=== PATIENT | male | born 1940 | race Caucasian/White ===

== ENCOUNTER 2017-05-31 00:05 | Inpatient (IN) | payer MEDICARE ==
[2017-05-31] MEDS ORDERED: Ondansetron HCl/PF 4 MG/2 ML Vial ONE ×2 (00:23→11:18)
[2017-05-31 02:02] LABS: #Eosinphils 0.1 thou/uL (0.0-0.7); #Lymphocytes 0.8 thou/uL (1.20-3.40); #Monocytes 0.7 thou/uL (0.11-0.59); #Neutrophils 8.5 thou/uL (1.40-6.50); %Eosinophils 1.4 % (0.0-10.0); %Lymphocytes 7.6 % (21.0-51.0); %Monocytes 6.7 % (0.0-10.0); Hematocrit 41.3 % (42.0-52.0); Mean Platelet Volume 7.1 fL (7.4-10.4); Red Blood Cell (RBC) Count 3.96 mill/uL (4.70-6.10); White Blood Cell (WBC) Count 10.1 thou/uL (4.8-10.8)
[2017-05-31 02:08] LABS: PTT 30.7 SEC (22.9-36.1)
[2017-05-31 02:21] LABS: ALT (SGPT) 11 U/L (8-55); AST (SGOT) 17 U/L (5-34); Alkaline Phosphatase 104 U/L (40-150); Anion Gap 11 mmol/L (10-20); BUN (Urea Nitrogen) 26 mg/dL (8.4-25.7); Bilirubin, Total 0.4 mg/dL (0.2-1.2); Calc. Creatinine Clearance 0 mL/min (70-130); Calcium 8.8 mg/dL (7.8-10.44); Carbon Dioxide 27 mmol/L (23-31); Chloride 107 mmol/L (98-107); Estimated GFR-MDRD Greater than 90; Globulin 2.4 g/dL (2.4-3.5); Protein, Total 5.7 g/dL (5.8-8.1)
[2017-05-31] MEDS ORDERED: Dextrose 50% Abboject 50 ML SYRINGE SLOW IVP PRN (03:10)
[2017-05-31] MEDS ORDERED: Morphine Sulfate 2 MG/ML SYRINGE IVP PRN (03:10)
[2017-05-31] MEDS ORDERED: Ondansetron ODT 4 MG TAB PO PRN (03:10)
[2017-05-31] MEDS ORDERED: Ondansetron HCl/PF 4 MG/2 ML Vial IVP PRN ×2 (03:10→11:53)
[2017-05-31] MEDS ORDERED: Dextrose 5% in Water 1,000 ML IV PRN (03:10)
[2017-05-31 03:20] VITALS: BMI 11.5
[2017-05-31] MEDS: Sodium Chloride 0.9% 1,000 ML IV SCH ×3 (03:56→20:55)
--- NOTE | 2017-05-31 05:36 | HP ---
DATE OF ADMISSION: 05/31/2017 REQUESTING PHYSICIAN: Dr. Guzman. CONSULTATION: Dr. De La O of Orthopedics. HISTORY OF PRESENT ILLNESS: The patient is a 76-year-old, man, who resides in a nursing h ome, who was found by staff after falling and landing on his left hip. The patient was unable to am bulate and had significant amount of pain, was brought by ambulance to the emergency department, und erwent evaluation and examination, and was noted to have a left femoral neck fracture, at which time , we were asked to evaluate the patient for admission and obtain orthopedic consultation. ALLERGIES: None. CURRENT MEDICATIONS: Vitamin D, vitamin B12, Dexilant, Colace, folic acid, multivitamin, Namenda, M iraLax, and Ultram. PAST MEDICAL HISTORY: Gastrointestinal disease, peptic ulcer disease, peripheral neuropathy, and de pression. PAST SURGICAL HISTORY: Right hip surgery and gastrectomy for bleeding ulcer. SOCIAL HISTORY: The patient is resident at a residential. Denies alcohol use, smokes cigars, and previously smoked 2 packs of cigarettes per day. FAMILY HISTORY: Significant for coronary artery disease and hypertension. REVIEW OF SYSTEMS: A 10-point review of systems was negative, unless otherwise stated. PHYSICAL EXAMINATION: VITAL SIGNS: Blood pressure 159/92, heart rate 100, respirations 16, temperature is 98.3, and oxyge n saturation is 98% on room air. GENERAL: The patient is resting comfortably in bed. He is alert and oriented x2. [place] coma sca le is 15. HEENT: Head is normocephalic, atraumatic. Eyes: Extraocular motion intact. PERRLA bilaterally. Ears are atraumatic without discharge. Nose is atraumatic without discharge. Oropharynx is clear. NECK: Nontender. Trachea is midline. No JVD. CHEST: Clear to auscultation with good inspiratory and expiratory effort. HEART: Regular rate and rhythm. ABDOMEN: Soft, flat, nontender. PELVIC: Stable. There is tenderness to palpation in the left hip. EXTREMITIES: The patient has the left hip flexed and slightly internally rotated. He is neurovascu larly intact x4. BACK: Nontender and atraumatic. LABORATORY FINDINGS: White blood cell count 10.1, hemoglobin 13.3, hematocrit 41.3, platelets 190. Sodium 141, potassium 4.3, chloride 107, CO2 of 27, BUN 26, creatinine 0.77, glucose 115. PT 14, I NR 1.1, PTT 31. RADIOGRAPHIC FINDINGS: CT of the brain without contrast shows no acute intracranial pathology. CT of the C-spine without contrast shows no acute fracture. Radiograph of the left hip showed displace d impacted femoral neck fracture. ASSESSMENT: 1. Status post ground level fall. 2. Left hip fracture. 3. Pain secondary to trauma. PLAN: Plan will be to admit the patient to the surgical floor, making the patient n.p.o., pain cont rol, pulmonary toilet, gastritis and mechanical deep venous thrombosis prophylaxis. The patient mor l be evaluated in the morning by Dr. De La O to discuss surgical intervention. The evaluation, exa mination, laboratory and radiographic findings were notified to Dr. Mclaughlin, who will see the patient in the morning during rounds.
--- NOTE | 2017-05-31 07:53 | RAD ---
2 VIEWS LEFT HIP: Date: 05/31/17 COMPARISON: None. HISTORY: Fall with left hip pain. FINDINGS: Two views of the left hip show an intertrochanteric fracture of the left femur which is moderately d isplaced. Surrounding soft tissue swelling is seen. No dislocation of the femoral head is seen. Ther e is remodeling of the left inferior pubic ramus which may be a sequelae from remote trauma. IMPRESSION: Left intertrochanteric femur fracture. POS: [facility]
--- NOTE | 2017-05-31 08:11 | RAD ---
SINGLE VIEW OF PELVIS: Date: 05/31/17 COMPARISON: 04/14/16. HISTORY: Fall with left hip pain. FINDINGS: Single view of the pelvis shows an intertrochanteric fracture of the left femur. There is remodeling of the left inferior pubic ramus which likely represents a healed fracture in this location. The pa tient is status post open reduction and internal fixation of the right femur. No significant degener ative change is seen in either hip. IMPRESSION: 1. Left intertrochanteric femur fracture. 2. Remote healed left inferior pubic ramus fracture. POS: [facility]
--- NOTE | 2017-05-31 08:14 | CT ---
PRELIMINARY REPORT/[facility]/EMERGENCY AFTER HOURS PROCEDURE: EXAM: CT Cervical Spine Without Intravenous Contrast CLINICAL HISTORY: 76 years old, male; Injury or trauma; Fall; Initial encounter; Abrasion; Patient HX: Er 7; Pt m76 pr esents to from [facility] with C/O l hip pain S/P fall that occurred x1.5 hours ago. Pt states that he tripped and fell and hit the front of his head. TECHNIQUE: Axial computed tomography images of the cervical spine without intravenous contrast. Coronal and sagittal reformatted images were created and reviewed. COMPARISON: No relevant prior studies available. FINDINGS: Vertebrae: There is multilevel disc height loss, endplate degenerative spurring and uncinate process and facet hypertrophy. There is diffuse osteopenia. There is grade 1 retrolisthesis at C4-5, likely degenerative. There is multilevel neural foraminal stenosis. No acute fracture. Discs/spinal canal/neural foramina: See above. Soft tissues: Unremarkable. Lung apices: There are emphysematous changes in the lung apices. IMPRESSION: No cervical spine fracture or other acute CT pathology. Thank you for allowing us to participate in the care of your patient. Dictated and Authenticated by: Wilber Prather MD 05/31/2017 1:10 AM Central Time ([place] \T\ [place]) FINAL REPORT EMERGENCY AFTER HOURS CT CERVICAL SPINE WITHOUT CONTRAST: Date: 05/31/17 FINDINGS/IMPRESSION: I agree with the findings and impression given in the preliminary report per ad physician. There a re degenerative changes in the cervical spine without acute osseous abnormality. POS: [facility]
--- NOTE | 2017-05-31 08:16 | RAD ---
SINGLE VIEW OF CHEST: Date: 05/31/17 COMPARISON: 02/25/17. HISTORY: Fall with left hip fracture. FINDINGS: Single view of the chest shows a normal sized cardiomediastinal silhouette with atherosclerotic calc ifications in the aorta. Increased interstitial lung markings are present. There is no evidence of c onsolidation, mass, or pleural effusion. IMPRESSION: 1. No evidence of acute cardiopulmonary disease. 2. Atherosclerotic disease. POS: [facility]
--- NOTE | 2017-05-31 08:16 | CT ---
PRELIMINARY REPORT/[facility]/EMERGENCY AFTER HOURS PROCEDURE: EXAM: CT Head Without Intravenous Contrast CLINICAL HISTORY: 76 years old, male; Injury or trauma; Fall; Initial encounter; Abrasion; Not specified; Patient HX: Er 7; Pt m76 presents to from [facility] with C/O l hip pain S/P fall that occurred x1.5 hours ago. Pt states that he tripped and fell and hit the front of his head. TECHNIQUE: Axial computed tomography images of the head/brain without intravenous contrast. COMPARISON: No relevant prior studies available. FINDINGS: Brain: There is age-related diffuse cerebral and cerebellar volume loss and chronic microvascular is chemic disease. No hemorrhage. Ventricles: Unremarkable. No ventriculomegaly. Bones/joints: Unremarkable. No acute fracture. Soft tissues: Unremarkable. Sinuses: Unremarkable as visualized. No acute sinusitis. Mastoid air cells: Unremarkable as visualized. No mastoid effusion. IMPRESSION: 1. There is age-related diffuse cerebral and cerebellar volume loss and chronic microvascular ischem ic disease. 2. No acute intracranial pathology. Thank you for allowing us to participate in the care of your patient. Dictated and Authenticated by: Wilber Prather MD 05/31/2017 1:02 AM Central Time ([place] \T\ [place]) FINAL REPORT EMERGENCY AFTER HOURS CT BRAIN WITHOUT CONTRAST: Date: 05/31/17 COMPARISON: 03/17/15. FINDINGS/IMPRESSION: I agree with the findings and impression given in the preliminary report per ad physician. Small v essel ischemic disease without acute intracranial abnormality. POS: [facility]
[2017-05-31] MEDS ORDERED: FLU VACC TS2017-18 (>65YR) 0.5 ML SYRINGE IM ONE (09:00)
--- NOTE | 2017-05-31 09:01 | CON ---
DATE OF CONSULTATION: 05/31/2017 HISTORY OF PRESENT ILLNESS: We were asked to see patient via Trauma in the emergency room. The pat cori had another ground level fall where he sustained a left hip fracture. We saw the patient 04/02 last year where he had some pelvic and sacral fractures. The patient does not recall that visit, h e recalls the injury per se, but does not recall the particulars of his last visit with us. I spoke with patient. He denies any loss of consciousness, but he does seem a little more somnolent and co nfused. He resides in a skilled facility and was found down by the nursing staff. The patient stat es he does not recall any loss of consciousness, but he is unsure. He also has pain to that left hi p. He denies any numbness and tingling down that left lower extremity and his pulses are intact. PAST MEDICAL HISTORY: Gastrointestinal disease, peptic ulcer disease, peripheral neuropathy, depres alesha. PAST SURGICAL HISTORY: Right hip surgery and gastrectomy. CURRENT MEDICATIONS: B complex, folic acid, polyethylene glycol, docusate sodium, ferrous sulfate. Pantoprazole, vitamin D3, Effexor. ALLERGIES: None. SOCIAL HISTORY: He resides at a detention facility. No alcohol, he does smoke cigars and cig arettes. I asked him how much he smokes a day and his response was \\\\"as much as it takes\\\\". FAMILY HISTORY: Noncontributory. REVIEW OF SYSTEMS: Denies any other symptoms currently other than his left hip pain. PHYSICAL EXAMINATION: GENERAL: Well-nourished, mildly thin male though who is resting in bed in no acute distress. Speec h is soft, but clear and he answers simple questions appropriately. HEENT: Normal exam. Face is symmetric. Tongue midline. NECK: Supple. EXTREMITIES: Upper extremities, some bruising on the forearms, but are equal size, asymmetry, nimco l bulk and tone for someone of his stature. Right lower extremity; moves this well. He has had yulissa t hip replaced on the right side. He is able to lift his leg off the bed, mildly. Left lower extre mity; unable to move this whatsoever. He has some tenderness to palpation over the left bursa and i nto the groin. He can wiggle his toes bilateral lower extremities and bilateral lower extremities D P, PT pulses are intact. He states he can feel all of his extremities. He was able to tell me with light sense proprioception great toe, little toe, top of foot, bottom of the foot without any diffi culty. ASSESSMENT: Left hip fracture. PLAN: I spoke with the patient. He is amenable to get surgery. Unfortunately, he does have some i ncrease in his dementia since last visit and he does have a power of trade mark attorney, the makes decisions f or him. I am told by the nurse that power of trade mark attorney does not want him to have surgery, so will jacobo ve to give him a call. The patient would need a short TFN nail. We would like to do that today pen ding verbal authorization from power of trade mark attorney. Again, I did speak with the patient about the kiko gical procedure, risks and benefits. He is amenable to go forth with this, but I think I do need to discuss this with myself, Dr. De La O and the power of trade mark attorney.
[2017-05-31] MEDS ORDERED: Dexamethasone 20 MG/5 ML VIAL ONE (11:18)
[2017-05-31] MEDS ORDERED: Lidocaine 2% PF 10 ML AMP (For Epidural Use) ONE (11:18)
[2017-05-31] MEDS ORDERED: PHENYLEPHRINE-NS 100 MCG/ML 10 ML SYRINGE ONE (11:18)
[2017-05-31] MEDS ORDERED: Propofol 200 MG/20 ML VIAL ONE (11:18)
[2017-05-31] MEDS ORDERED: Fentanyl 100 MCG/2 ML VIAL ONE (11:24)
[2017-05-31] MEDS ORDERED: Morphine Sulfate 2 MG/ML SYRINGE SLOW IVP PRN (11:53)
[2017-05-31] MEDS ORDERED: Promethazine HCl 25 MG/ML VIAL IM PRN (11:53)
[2017-05-31] MEDS ORDERED: HYDROmorphone 2 MG/ML VIAL SLOW IVP PRN (11:53)
[2017-05-31] MEDS ORDERED: Promethazine HCl 25 MG/ML VIAL SLOW IVP PRN (11:53)
[2017-05-31] MEDS ORDERED: Meperidine HCl/PF 25 MG/ML VIAL SLOW IVP PRN (11:53)
[2017-05-31] MEDS ORDERED: traMADol HCl 50 MG TAB PO PRN (15:35)
[2017-05-31] MEDS ORDERED: HYDROcodone/Acetaminophen 5/325 mg Tablet PO PRN ×2 (15:36→15:37)
--- NOTE | 2017-05-31 15:57 | RAD ---
2 VIEWS LEFT HIP: Date: 05/31/17 COMPARISON: 05/31/17 at 0044 hours. HISTORY: Nailing of intertrochanteric femur fracture. FINDINGS/IMPRESSION: Two limited intraoperative fluoroscopic views of the left hip were submitted for interpretation. The patient has undergone fixation of the intertrochanteric femur fracture with an intramedullary yanni. Fracture is better aligned. No perihardware lucency is seen. POS: [facility]
[2017-05-31] MEDS ORDERED: Chloraseptic Spray 180 ml Bottle PO PRN (17:28)
[2017-06-01] MEDS: Sodium Chloride 0.9% 1,000 ML IV SCH ×2 (05:25→12:40)
[2017-06-01 08:41] LABS: #Monocytes 1.3 thou/uL (0.11-0.59); #Neutrophils 7.7 thou/uL (1.40-6.50); %Basophils 0.4 % (0.0-1.0); %Eosinophils 0.5 % (0.0-10.0); %Lymphocytes 9.6 % (21.0-51.0); Hematocrit 24.8 % (42.0-52.0); Mean Platelet Volume 7.2 fL (7.4-10.4); Red Blood Cell (RBC) Count 2.37 mill/uL (4.70-6.10); White Blood Cell (WBC) Count 10.1 thou/uL (4.8-10.8)
[2017-06-01 09:07] LABS: Ovalocytes SLIGHT = 2-5 cells (100X) (0-1/hpf); Polychromasia SLIGHT = 2-3 cells (100X) (0-2/hpf)
--- NOTE | 2017-06-01 17:16 | OP ---
DATE OF SURGERY: 05/31/2017 PREOPERATIVE DIAGNOSIS: Left intertrochanteric femur fracture. POSTOPERATIVE DIAGNOSIS: Left intertrochanteric femur fracture. SURGICAL PROCEDURE: Trochanteric fixation nail placement, left intertrochanteric. ANESTHESIA: General. SURGEON: Sushil De La O M.D. [facility] SUPERVISOR: Coy King PA-C. IMPLANTS: TFN 12 x 170 mm nail with 95 mm hip screw. COMPLICATIONS: None. DRAINS: None. SPECIMEN: None. OUTCOME: Satisfactory. INDICATIONS: Mr. Mckeon is a 76-year-old gentleman status post ground level fall sustaining intertro chanteric femur fracture. After discussion with patient including risks and benefits as well as his durable power of attorney at law, we discussed merits of an intramedullary hip screw and decided to procee d with this surgery. Informed consent has been obtained. I believe all questions have been answere d. PROCEDURE: After the induction of general anesthesia, a timeout was performed and then patient was placed on the fracture table with the injured left extremity held in longitudinal traction and the r ight limb scissored to allow for AP lateral C-arm imaging. Next, a sterile prep and drape was perfo rmed of the left lateral thigh. Next, a small incision was made just proximal to the greater trocha nter. After skin was sharply incised, dissection was carried down bluntly to the underlying tip of the greater trochanter. A threaded guidewire was passed from the tip of the greater trochanter down into the proximal femoral canal. This was then followed by passage of the opening reamer. Next, a 12 x 170 mm nail was passed through this opening into the femoral canal by hand with relative ease. Once positioned appropriately, the jig was inserted laterally through a second small skin incision and hip screw placement was performed first by passing a guidewire up the femoral neck into the fem oral head, achieving a near center-center position. This was then followed by insertion of the femo ral neck and head screw in standard fashion. This was locked in a dynamic type mode. A third small incision was then made distal to the first two and a single distal cross lock screw inserted. At c ompletion of this, the 3 incisions were irrigated with bulb syringe. The proximal most incision was closed in layers with 2-0 Vicryl and alvin. The two distal incisions closed with alvin. A Xer oform gauze tape dressing was applied to the thigh and then patient was transferred to recovery room in stable condition. There were no complications. He tolerated the procedure well.
--- NOTE | 2017-06-01 18:14 | PRG ---
DATE OF SERVICE: 06/01/2017 SUBJECTIVE: The patient is hospital day #2, postop day #1 status post ground-level fall in which he sustained a left hip fracture. The patient underwent surgical repair yesterday and he tolerated th is procedure well. This morning, the patient had no complaints, states that his pain is controlled. He is tolerating his diet this morning and the plan is for him to start working with Physical and Occupational Therapy this morning. OBJECTIVE: VITAL SIGNS: Temperature 98.2, heart rate 95, blood pressure 111/64, oxygen saturation is 91% on ro om air. This improved to 97% on 2 liters via nasal cannula. GENERAL: Patient is resting comfortably in bed. He is alert and oriented x2, which appears to be h is baseline. He is conversant and appropriate. LUNGS: Chest is clear to auscultation bilaterally. Needs coaching with his inspiratory spirometry. ABDOMEN: Soft, flat, nontender. EXTREMITIES: Neurovascularly intact x4. His surgical site is clean, dry, and intact. ASSESSMENT AND PLAN: 1. Status post ground-level fall. 2. Left hip fracture. 3. Status post open reduction and internal fixation of hip fracture. PLAN: Plan will be to continue pain management, pulmonary toilet, gastritis and mechanical DVT prop hylaxis. Physical and occupational therapy and rehab consultation, evaluation and examination were discussed with Dr. Mclaughlin around at rounds.
[2017-06-01] MEDS: Ferrous Sulfate 325 MG TAB PO SCH (19:40)
[2017-06-01] MEDS: Senokot S 8.6-50 MG TAB PO SCH (20:28)
[2017-06-01] MEDS: Ascorbic Acid 500 mg Chewable Tablet PO SCH (20:28)
[2017-06-02 05:52] LABS: #Eosinphils 0.1 thou/uL (0.0-0.7); #Lymphocytes 0.8 thou/uL (1.20-3.40); #Monocytes 1.2 thou/uL (0.11-0.59); #Neutrophils 6.7 thou/uL (1.40-6.50); %Basophils 0.4 % (0.0-1.0); %Eosinophils 0.6 % (0.0-10.0); %Lymphocytes 9.3 % (21.0-51.0); %Monocytes 13.9 % (0.0-10.0); Hematocrit 21.1 % (42.0-52.0); Mean Platelet Volume 7.1 fL (7.4-10.4); Red Blood Cell (RBC) Count 2.04 mill/uL (4.70-6.10); White Blood Cell (WBC) Count 8.8 thou/uL (4.8-10.8)
[2017-06-02 05:54] LABS: Anion Gap 7 mmol/L (10-20); BUN (Urea Nitrogen) 22 mg/dL (8.4-25.7); Calc. Creatinine Clearance 51 mL/min (70-130); Calcium 8.1 mg/dL (7.8-10.44); Carbon Dioxide 29 mmol/L (23-31); Chloride 102 mmol/L (98-107); Estimated GFR-MDRD Greater than 90; Magnesium 1.8 mg/dL (1.6-2.6)
[2017-06-02 06:02] LABS: Phosphorus 1.8 mg/dL (2.3-4.7)
[2017-06-02] MEDS ORDERED: Magnesium Sulfate 3 GM in Sodium Chloride 0.9% 250 ML 250 ML IVPB SCH (06:15)
[2017-06-02] MEDS ORDERED: Potassium Phosphate 30 MMOL in Sodium Chloride 0.9% 500 ML IVPB SCH (06:15)
[2017-06-02] MEDS: Senokot S 8.6-50 MG TAB PO SCH ×2 (07:37→21:26)
[2017-06-02] MEDS: traMADol HCl 50 MG TAB PO PRN (07:37)
[2017-06-02] MEDS: Ascorbic Acid 500 mg Chewable Tablet PO SCH ×2 (07:37→21:26)
[2017-06-02] MEDS: Ferrous Sulfate 325 MG TAB PO SCH ×2 (07:37→17:08)
[2017-06-02] MEDS: Polyethylene Glycol 3350 17 GM Packet PO SCH (07:52)
[2017-06-02] MEDS ORDERED: Enoxaparin Sodium 30 MG/0.3 ML SYRINGE SC SCH (09:00)
[2017-06-03] MEDS: traMADol HCl 50 MG TAB PO PRN (03:51)
[2017-06-03 06:25] LABS: #Eosinphils 0.1 thou/uL (0.0-0.7); #Lymphocytes 0.7 thou/uL (1.20-3.40); #Neutrophils 7.1 thou/uL (1.40-6.50); %Basophils 0.1 % (0.0-1.0); %Lymphocytes 7.9 % (21.0-51.0); %Monocytes 11.4 % (0.0-10.0); Hematocrit 23.4 % (42.0-52.0); Mean Platelet Volume 7.8 fL (7.4-10.4); Red Blood Cell (RBC) Count 2.35 mill/uL (4.70-6.10); White Blood Cell (WBC) Count 8.9 thou/uL (4.8-10.8)
[2017-06-03 06:57] LABS: Anion Gap 8 mmol/L (10-20); BUN (Urea Nitrogen) 16 mg/dL (8.4-25.7); Calc. Creatinine Clearance 57 mL/min (70-130); Calcium 7.9 mg/dL (7.8-10.44); Carbon Dioxide 30 mmol/L (23-31); Chloride 103 mmol/L (98-107); Estimated GFR-MDRD Greater than 90; Magnesium 2.1 mg/dL (1.6-2.6); Phosphorus 2.5 mg/dL (2.3-4.7)
--- NOTE | 2017-06-03 07:03 | PRG-2 ---
DATE OF SERVICE: 06/02/2017 DATE OF ADMISSION: 05/31/2017 SUBJECTIVE: Patient is hospital day #3. On postop day #2, status post ground level fall in which h e sustained left hip fracture. Patient is in bed. Denies any pain. States that his pain is well c ontrolled, tolerating diet. No other concerns or complaints at this time. OBJECTIVE: VITAL SIGNS: Temperature was 98.4, respirations were 20, pulse was 107, blood pressure 118/66, and oxygen sat was 94% on 2 liters. GENERAL: Patient is resting comfortably in bed. Alert and oriented x2, which appears to be baselin e. LUNGS: Clear to auscultation bilaterally. ABDOMEN: Soft, flat, nontender. EXTREMITIES: Neurovascularly intact x4. Surgical site is clean and dry. CARDIOVASCULAR: Regular rate and rhythm. No murmurs or gallops. LABORATORY DATA: White blood cell count was 8.8, hemoglobin was 7.0, hematocrit was 21.1, MCV was 1 04, platelet count was 110. Sodium was 134, potassium 3.5, chloride 102, carbon dioxide 29, BUN 22, creatinine 0.67, calcium 8.1, phosphorus is 1.8, and magnesium was 1.8. No new images to be reviewed at this time. ASSESSMENT AND PLAN: 1. Status post ground level fall. 2. Left hip fracture. 3. Status post open reduction and internal fixation of hip fracture. 4. Acute traumatic pain. Plans were to be continued pain management and pulmonary toilet. We will supplement him with potass ium phosphate and give 3 grams of magnesium due to labs. He is tachycardic and hemoglobin is 7. We will transfuse him with 1 unit of blood and continue to observe. We will get physical and OT thera py. We will continue to work with him, get rehab consultation, and await placement for patient. Zak rizo was seen and examined with Dr. Mclaughlin. This note needs to be cosigned by Dr. Rory Mclaughlin.
[2017-06-03] MEDS: Ascorbic Acid 500 mg Chewable Tablet PO SCH (08:45)
[2017-06-03] MEDS: Polyethylene Glycol 3350 17 GM Packet PO SCH (08:45)
[2017-06-03] MEDS: Ferrous Sulfate 325 MG TAB PO SCH (08:45)
[2017-06-03] MEDS: Senokot S 8.6-50 MG TAB PO SCH (08:45)
[2017-06-03] MEDS ORDERED: Heparin 5,000 UNITS/ML VIAL SC SCH (09:00)
--- NOTE | 2017-06-03 10:27 | PQF ---
CLINICAL DOCUMENTATION IMPROVEMENT CLARIFICATION FORM: ICD-10 Updated PLEASE DO AN ADDENDUM TO THE PROGRESS NOTE WITH ANY DOCUMENTATION UPDATES OR ADDITIONS AND CARRY THROUGH TO DC SUMMARY. THANK YOU. DATE: 06/03 ATTN: DR. BRITNI VERMA Please exercise your independent, professional judgment in responding to the clarification form. Clinical indicators are provided on the bottom of this form for your review Please check appropriate box(s): [ x ] Acute blood loss anemia [ ] Post-op anemia related to acute blood loss [ ] Other diagnosis [ ] Unable to determine For continuity of documentation, please document condition throughout progress notes and discharge summary. Thank You. CLINICAL INDICATORS - SIGNS / SYMPTOMS / LABS H/H: 13.3/41.3 (ON ADMIT, 05/31) 8.2/24.8 (06/01 - POSTOP) 7.0/21.1 (06/02) 7.8/23.4 (06/03, POST TRANSFUSION) 05/31 OPERATIVE NOTE: TROCHANTERIC FIXATION NAIL PLACEMENT 05/31 - INTRA-OPERATIVE ANESTHESIA DOCUMENTATION: ESTIMATED BLOOD LOSS - 250 ML ORTHO PN DATED 06/02: ANEMIA D/T LEFT HIP FRACTURE - TRANSFUSION PER TRAUMA TRAUMA PN DATED 06/02: HE IS TACHYCARDIC & HEMOGLOBIN IS 7. WE WILL TRANSFUSE HIM WITH 1 UNIT OF BLOOD... RISK FACTORS: SURGERY (05/31) L INTERTROCHANTERIC FEMUR FRACTURE TREATMENTS: TRANSFUSION 1 UNIT PRBC (06/02) SERIAL CBC (05/31 - PRESENT) THANK YOU! [place] (This form is maintained as a part of the permanent medical record) 2014 [employer]. All Rights Reserved Juana Farrar RN, BSN [email or web address] Office: [phone] [facility] SYSTEMOmaira
[2017-06-03 13:15] VITALS: BP 116/63; TEMP 98.3
--- NOTE | 2017-06-04 13:04 | DIS ---
DATE OF ADMISSION: 05/31/2017 DATE OF DISCHARGE: 06/03/2017 On 05/31/2017, the patient underwent procedure of trochanteric fixation nail placement on the left. BRIEF ADMISSION HISTORY AND PHYSICAL EXAM FINDINGS: This is a 76-year-old male, who resides in a [facility] [facility] home, who was found by staff after falling and landing on his left hip. The patient was unabl e to ambulate and had significant amount of pain. FINAL DIAGNOSES: 1. Status post ground level fall. 2. Left hip fracture. 3. Pain secondary to trauma. HOSPITAL COURSE: The patient underwent surgery on 05/31/2017, continued to do well postoperatively. He was then cleared for discharge back to [facility] and at that time, everything was a rranged. Dr. Mclaughlin was seen at the bedside. His vital signs have been stable. He is tolerating a regular diet. He is urinating and having bowel movements. DISCHARGE CONDITION: Good. DISCHARGE DISPOSITION: To the [facility] where he was residing. DISCHARGE MEDICATIONS: Will be reflected in MAR and we will continue those at the [facility]. FOLLOWUP: The patient is to follow up with Dr. De La O in 7-10 days. Otherwise, follow up with PC P as needed. This is merely a trauma discharge summary, please refer to the chart for further information.
== END 2017-06-03 16:03 | DRG 481 ==
LOC: ERS 00:05 → SJJU 01:00 → SURG A 06-01 18:12
PROVIDERS: ADMIT Surgery; ATTEND Surgery
PROC: 0QH704Z Insertion of Internal Fixation Device into Left Upper Femur, Open Approach (ICD-10-PCS; principal; 2017-05-31)
PROC: 30233N1 Transfusion of Nonautologous Red Blood Cells into Peripheral Vein, Percutaneous Approach (ICD-10-PCS; 2017-06-02)
DX: S72.142A Displaced intertrochanteric fracture of left femur, initial encounter for closed fracture (principal); D62 Acute posthemorrhagic anemia; F03.90 Unspecified dementia, unspecified severity, without behavioral disturbance, psychotic disturbance, mood disturbance, and anxiety; Z90.3 Acquired absence of stomach [part of]; Z96.641 Presence of right artificial hip joint; Z72.0 Tobacco use; G89.11 Acute pain due to trauma; Z87.81 Personal history of (healed) traumatic fracture
CPT/HCPCS: 36415; 36430; 70450; 71010; 72125; 72170; 76001; 80048; 80053; 83735; 84100; 85025; 85610; 85730; 86850; 86900; 86901; 93005; 96361; 96374; 96375; C1713; G8978-GP-CL; G8979-GP-CJ; G8987-GO-CL; G8988-GO-CJ; J1100; J1644; J1650; J2001; J2270; J2405; J2704; J3010; J3475; J7050; P9016

== ENCOUNTER 2017-06-04 12:36 | Emergency (ER) | payer MEDICARE ==
[2017-06-04 13:12] LABS: #Lymphocytes 0.9 thou/uL (1.20-3.40); #Neutrophils 5.8 thou/uL (1.40-6.50); %Basophils 0.3 % (0.0-1.0); %Eosinophils 0.3 % (0.0-10.0); %Lymphocytes 11.3 % (21.0-51.0); %Monocytes 12.7 % (0.0-10.0); Mean Platelet Volume 7.2 fL (7.4-10.4); Red Blood Cell (RBC) Count 2.39 mill/uL (4.70-6.10); White Blood Cell (WBC) Count 7.7 thou/uL (4.8-10.8)
[2017-06-04 13:31] LABS: ALT (SGPT) 8 U/L (8-55); AST (SGOT) 25 U/L (5-34); Alkaline Phosphatase 64 U/L (40-150); Anion Gap 9 mmol/L (10-20); BUN (Urea Nitrogen) 23 mg/dL (8.4-25.7); Bilirubin, Total 1.6 mg/dL (0.2-1.2); Calc. Creatinine Clearance 0 mL/min (70-130); Calcium 8.6 mg/dL (7.8-10.44); Carbon Dioxide 32 mmol/L (23-31); Chloride 99 mmol/L (98-107); Estimated GFR-MDRD Greater than 90; Globulin 2.7 g/dL (2.4-3.5); Protein, Total 5.5 g/dL (5.8-8.1)
[2017-06-04] MEDS ORDERED: Ondansetron HCl/PF 4 MG/2 ML Vial ONE (13:59)
[2017-06-04] MEDS ORDERED: Morphine Sulfate 2 MG/ML SYRINGE ONE (13:59)
--- NOTE | 2017-06-04 14:11 | RAD ---
TWO VIEWS LEFT HIP: Date: 06-04-17 History: Left hip pain. Patient is post fall yesterday with ORIF left hip fracture. Comparison: Intraoperative fluoroscopic images left hip, 05-31-17. FINDINGS: Antegrade intramedullary yanni with compression screw as well as distal interlocking screw again trans fix the intertrochanteric left hip fracture. Fracture alignment is unchanged from the prior study. N o hardware complication is seen. Surgical clips are seen lateral to the left hip. Fracture involving the inferior left pubic ramus as well as the more lateral aspect of the left supe rior pubic ramus. These fractures may be more remote in origin. Dense vascular calcifications as wel l as phleboliths overlie the left hemipelvis. IMPRESSION: 1. Internal fixation of intertrochanteric left hip fracture with stable alignment of the fracture fr agments as noted on intraoperative fluoroscopic images left hip on 05-31-17. 2. Fracture involving the medial aspect of the left superior pubic ramus as well as one involving th e inferior pubic ramus which may represent more remote type fractures. POS: [facility]
== END 2017-06-04 15:19 | disposition home or self-care (01) ==
LOC: ERS 12:36
DX: S32.512A Fracture of superior rim of left pubis, initial encounter for closed fracture (principal); G62.9 Polyneuropathy, unspecified; F32.9 Major depressive disorder, single episode, unspecified; F17.290 Nicotine dependence, other tobacco product, uncomplicated; F17.210 Nicotine dependence, cigarettes, uncomplicated; Z79.899 Other long term (current) drug therapy; W19.XXXA Unspecified fall, initial encounter
CPT/HCPCS: 36415; 80053; 85025; 96374; 96375; J2270; J2405